=== PATIENT | male | born 1995 ===

== ENCOUNTER 2016-04-18 19:22 | Emergency (ER) | payer BC ==
--- NOTE | 2016-04-27 23:35 | ER ---
ADMIT: 04/18/2016 RM/LOC: ER [facility] MR#: [id number] [address] [id number] FERNANDEZ GARCIA [address] [place] [id number] Emergency Room Report SEX: M AGE: 21 : 1995 DATE: 04/18/2016 ADDENDUM: This patient comes into the ER because he was changing out some breaks and he is not sure what he caught his hand on, but he has a 3 cm laceration on the right thenar eminence. He has good range of motion of his thumb and sensation is intact. There was no tendon damage. I infiltrated the area with 5 mL of lidocaine under sterile procedure. I placed 6 vertical mattress stitches. Please see my T-sheet. EDUARDO Fritz / Jim Arriaga MD / elie JOB #: [id number] CC: Jim Arriaga MD, Attending Physician Bryn Ba MD, Family Physician
== END 2016-04-18 20:28 | disposition home or self-care (01) ==
LOC: ER 19:22
PROC: 0HQFXZZ Repair Right Hand Skin, External Approach (ICD-10-PCS; principal; 2016-04-18)
DX: S61.411A Laceration without foreign body of right hand, initial encounter (principal); Z23 Encounter for immunization; W45.8XXA Other foreign body or object entering through skin, initial encounter; Y92.009 Unspecified place in unspecified non-institutional (private) residence as the place of occurrence of the external cause